=== PATIENT | male | born 1950 | race African-American/Black ===

== ENCOUNTER 2016-04-07 03:04 | Inpatient (IN) | payer OTHER ==
--- NOTE | 2016-04-06 11:07 | EKG Report ---
Test Performed on : 04/06/2016 10:18:14 AM Test Reason : PAT Blood Pressure : / mmHG Vent. Rate : 079 BPM Atrial Rate : 079 BPM P-R Int : 206 ms QRS Dur : 088 ms QT Int : 380 ms P-R-T Axes : 070 -50 058 degrees QTc Int : 435 ms Normal sinus rhythm. Left axis deviation Abnormal ECG When compared with ECG of 25-MAY-2012 09:24, ST less elevated in V2 Confirmed by Nadeem Diaz DO ([id number]) on 04/06/2016 6:53:28 PM
[2016-04-06 12:28] LABS: MANUAL DIFF NEEDED? NO; URINE MICRO REVIEW NEEDED? NO; URINE SOURCE CLEAN CATCH
[2016-04-06 12:29] LABS: BASO% 0.6 % (0.0-0.8); EOS% 1.6 % (0.0-10.0); HEMOGLOBIN 14.9 g/dL (14.0-18.0); IMM GRAN# 0.02 X1000 (0.0-0.04); IMM GRAN% 0.3 % (0.0-0.5); LYMPH# 2.54 X1000 (1.2-3.4); MCH 27.9 PG (27-31); MCHC 33.1 g/dL (33-37); MCV 84.1 FL (81-99); MONO# 0.67 X1000 (0.11-0.59); MONO% 10.8 % (1.7-9.3); MPV 10.8 FL (7.4-10.4); NEUT% 45.7 % (42.2-75.2); PLT 272 X1000 (130-400); RBC 5.35 XMIL (4.7-6.1)
[2016-04-06 12:31] LABS: BILIRUBIN URINE NEGATIVE (NEGATIVE); BLOOD URINE NEGATIVE (NEGATIVE); COLOR YELLOW; GLUCOSE URINE NEGATIVE (NEGATIVE); LEUKOCYTES URINE SMALL (NEGATIVE); NITRITE URINE NEGATIVE (NEGATIVE); PH URINE 5.5; PROTEIN URINE NEGATIVE (NEGATIVE); SP GRAVITY URINE 1.021; TURBIDITY URINE CLEAR (CLEAR); UROBILINOGEN URINE NORMAL (NORMAL)
[2016-04-06 12:32] LABS: UR EPITHELIAL CELLS <10 /HPF (<10); URINE BACTERIA NEGATIVE /HPF; URINE RBC <10 /HPF (<10); URINE WBC <10 /HPF (<10)
[2016-04-06 12:43] LABS: INR 1.19; PROTIME 12.6 Seconds (9.2-11.7); PTT 27.8 Seconds (22.0-36.0)
[2016-04-06 13:01] LABS: AGAP 15; BUN 18 mg/dL (8-22); CALCIUM 9.6 mg/dL (8.8-10.2); CHLORIDE 99 mmol/L (98-107); COSMO 280; POTASSIUM 3.9 mmol/L (3.5-5.1); SODIUM 138 mmol/L (136-145); TCO2 24 mmol/L (25-35)
[2016-04-07] MEDS ORDERED: COLACE ONE (06:23)
[2016-04-07] MEDS ORDERED: CELEBREX ONE (06:23)
[2016-04-07] MEDS ORDERED: LR 1,000 ML ONE ×2 (06:23→12:34)
[2016-04-07] MEDS ORDERED: LYRICA ONE (06:23)
[2016-04-07] MEDS ORDERED: REGLAN ONE (06:24)
[2016-04-07] MEDS ORDERED: PEPCID ONE (06:24)
[2016-04-07] MEDS ORDERED: TOPROL XL ONE (06:48)
--- NOTE | 2016-04-07 07:39 | HISTORY AND PHYSICAL ---
CHIEF COMPLAINT: Pain, left knee. HISTORY OF PRESENT ILLNESS: This is a 66-year-old black male with a history of increasing pain about his left knee for several years. No improvement is seen with conservative treatment. Examination and x-rays are compatible with osteoarthritis about his left knee. It was felt he would benefit from admission for surgery for left total knee arthroplasty. This has been discussed with him including expected results and possible complications, and he wishes to proceed. PRIMARY CARE PHYSICIAN: He does not have a regular physician. He goes to urgent care when needed. ALLERGIES: Denies any known drug allergies. REGULAR MEDICATIONS: Include naproxen, Nexium, Bactrim, Zocor, OxyContin, metoprolol, metformin, ibuprofen. Please see chart for dosages. SERIOUS ILLNESSES: He does have a history of sleep apnea. He does not use a CPAP. He has hypertension, high cholesterol, gastric reflux, diabetes. PREVIOUS SURGERIES: He has had cervical disk fusion, lumbar disk surgery, surgery to his hand, also nailing of his right hip in 2007. REVIEW OF SYSTEMS: HEENT: Denies any history of headaches, dizziness, or blacking out. Cardiorespiratory: No history of pneumonia, bronchitis, or asthma. He does have sleep apnea, but does not use a CPAP. He does have a history of hypertension and high cholesterol. He denies any known heart problems. Gastrointestinal: He does have a history of gastric reflux. Genitourinary: Negative. Musculoskeletal: See History of Present Illness. PHYSICAL EXAMINATION: GENERAL: This is a well-developed, well-nourished white male, who is alert and oriented. VITAL SIGNS: Temperature 98.4 degrees, pulse 88, respirations 18, blood pressure 146/100. Height is 6 feet 1 inch, weight 290 pounds. HEENT: Head is normocephalic. Pupils are equal, round, reactive to light. Extraocular movements are intact. Natural teeth are present. NECK: Good range of motion. CHEST: Clear to auscultation bilaterally. HEART: Regular rhythm. ABDOMEN: Soft and nontender. Bowel sounds are active. EXTREMITIES: Lower extremities, exam of his left knee with medial joint line tenderness, worse with range of motion. There is crepitus with range of motion. He does have good flexion and extension present. NEUROVASCULAR: Function is intact distally. IMPRESSION: Osteoarthritis, left knee. PLAN: Admit for surgery for left total knee arthroplasty. Expected results and possible complications have been discussed with him, and he seems to have understanding of this and wishes to proceed. All questions were answered. Dictated by Tree Lara RN for Tc Cardona MD
[2016-04-07] MEDS ORDERED: VERSED ONE (08:08)
[2016-04-07] MEDS ORDERED: NAROPIN 0.5% ONE (08:08)
[2016-04-07] MEDS ORDERED: TORADOL ONE (08:20)
[2016-04-07] MEDS ORDERED: DURAMORPH ONE (08:20)
[2016-04-07] MEDS ORDERED: SODIUM CHLORIDE 0.9% ONE (08:21)
[2016-04-07] MEDS ORDERED: NEOSPORIN G.U. IRRIGANT ONE (08:21)
[2016-04-07] MEDS ORDERED: VANCOMYCIN ONE (08:21)
[2016-04-07] MEDS ORDERED: MARCAINE 0.25% PF/EPI 1:200,000 ONE (08:21)
[2016-04-07] MEDS ORDERED: EXPAREL 1.3% ONE (08:22)
[2016-04-07] MEDS: CYKLOKAPRON 1,000 MG/NS 100 ML ONE ×5 (08:31→10:48)
[2016-04-07] MEDS: KEFZOL 2 GM/D5W 50 ML ONE ×2 (08:31→08:44)
[2016-04-07] MEDS ORDERED: NAPROSYN PO SCH (09:00)
[2016-04-07 10:05] LABS: URINE MICRO REVIEW NEEDED? NO; URINE SOURCE CATH
[2016-04-07 10:07] LABS: BILIRUBIN URINE NEGATIVE (NEGATIVE); BLOOD URINE NEGATIVE (NEGATIVE); COLOR YELLOW; GLUCOSE URINE NEGATIVE (NEGATIVE); LEUKOCYTES URINE NEGATIVE (NEGATIVE); NITRITE URINE NEGATIVE (NEGATIVE); PH URINE 5.5; PROTEIN URINE NEGATIVE (NEGATIVE); SP GRAVITY URINE 1.021; TURBIDITY URINE CLEAR (CLEAR); UROBILINOGEN URINE NORMAL (NORMAL)
[2016-04-07 10:08] LABS: UR EPITHELIAL CELLS <10 /HPF (<10); URINE BACTERIA NEGATIVE /HPF; URINE RBC <10 /HPF (<10); URINE WBC <10 /HPF (<10)
[2016-04-07] MEDS ORDERED: ZOFRAN ONE ×2 (11:15→12:34)
[2016-04-07] MEDS: DILAUDID ONE ×6 (11:16→12:00)
[2016-04-07] MEDS ORDERED: NS 1,000 ML ONE (11:23)
[2016-04-07] MEDS ORDERED: DIPRIVAN 1% ONE (11:56)
[2016-04-07] MEDS ORDERED: FENTANYL ONE (11:56)
[2016-04-07] MEDS ORDERED: DECADRON ONE (12:34)
[2016-04-07] MEDS ORDERED: OFIRMEV 1000 MG/ISOTONIC SOLN 100 ML ONE (12:34)
[2016-04-07] MEDS ORDERED: ROBINUL ONE (12:34)
[2016-04-07] MEDS ORDERED: CLAVE SECONDARY SET 11953 ONE (12:34)
[2016-04-07] MEDS ORDERED: XYLOCAINE-MPF 2% ONE (12:34)
[2016-04-07] MEDS ORDERED: FLEXERIL PO PRN (12:58)
[2016-04-07] MEDS ORDERED: MILK OF MAGNESIA PO PRN (12:59)
[2016-04-07] MEDS ORDERED: ZOFRAN PO PRN (12:59)
[2016-04-07] MEDS: MORPHINE IV PRN ×3 (13:29→21:22)
--- NOTE | 2016-04-07 13:49 | Diag Imaging Result Document ---
PROCEDURE NAME: KNEE 1-2 VIEWS-LEFT - 04/07/2016 PLAIN RADIOGRAPH OF THE LEFT KNEE 2 VIEWS: COMPARISON: None available. FINDINGS: There has been a recent left knee arthroplasty. The arthroplasty hardware is in the expected position. There is no evidence of periprosthetic fracture. Anterior skin jesús and a drainage catheter are in place. IMPRESSION: Satisfactory postoperative knee.
--- NOTE | 2016-04-07 15:37 | OPERATIVE NOTE ---
PROCEDURE DATE: 04/07/2016 PREOPERATIVE DIAGNOSIS: Degenerative osteoarthritis of the left knee. POSTOPERATIVE DIAGNOSIS: Degenerative osteoarthritis of the left knee. PROCEDURE: Left total knee arthroplasty with a DePuy Attune size 6 posterior stabilized femur, size 7 tibial tray, 14 mm rotating platform tibial insert, and a 38 mm medialized anatomic patella. SURGEON: Dr. Tc Cardona. DIGITAL SPECIALIST: DANDY Saenz. SECOND DIGITAL SPECIALIST: Tree Lara RN. ANESTHESIA: General. IV FLUIDS: 1500 mL lactated Ringer's. ESTIMATED BLOOD LOSS: 30 mL. TOURNIQUET TIME: 95 minutes at 350 mmHg. COMPLICATIONS: None. INDICATION: The patient is a 66-year-old male with a chronic history of worsening pain and discomfort of the left knee. X-rays revealed significant degenerative osteoarthritis. It appears his pain has progressed and affects his activities of daily living. Recommendation to proceed with a left total knee arthroplasty was offered. Risks and benefits of surgery explained including risks of anesthesia, , bleeding, infection, failure to relieve pain, postoperative stiffness, nerve injury, blood clots, and other imponderables. All questions were answered, and the patient and family wished to proceed with surgery. DETAILS OF OPERATION: The patient was taken to the operating room and placed supine on the operating table. Once adequate anesthesia was obtained, the patient's left lower extremity was subsequently prepped and draped in the sterile fashion. An Esmarch was used to exsanguinate the left lower extremity, and the tourniquet was inflated to 350 mmHg. A standard anterior incision was made with the skin knife. Medial and lateral skin envelopes developed. Standard medial parapatellar arthrotomy was then performed. Patella fat pad was excised. Approximately 1 cm anterior to the PCL insertion, the starting reamer was passed. Intramedullary guide with a distal femoral cutting block was pinned in position. Distal femoral cut was then performed. A sizing block was placed and measured size 6. Corresponding pins were placed. A size 6 cutting block was placed into position. Anterior, posterior, and chamfer cuts were then made. Attention then turned to the proximal tibia where further resection of the ACL and PCL was performed. Using the extramedullary guide, the proximal tibia cutting block was pinned in position. The proximal tibia was then resected in standard fashion. A curved osteotome was used to remove the posterior osteophytes off the distal femur. The medial and lateral meniscus was excised. A spacer block was placed and had good soft tissue balance in both flexion and extension. Attention turned to the proximal tibia and a size 7 tray appeared to be the correct size. This was pinned in position. This was followed by central reamer and a fin punch. Attention then turned to the distal femur where a box cutting guide was pinned in position. A box cut was performed. A size 6 trial femoral component was impacted in position and 2 good lug holes were drilled. The trial tibial insert was placed and had good soft tissue balancing. Patella everted and resected in standard fashion. A 38 appeared to be the correct size. Corresponding holes were drilled. A size 38 patella trial was then placed and had good patellofemoral tracking. The components were then removed. A small drill bit was used to drill a few holes in the medial sclerotic bone of the proximal tibia. The wound was copiously irrigated with antibiotic pulsatile lavage while vancomycin was mixed with cement on the back table. Sequential cementing was then performed, first with the tibial tray and excess cement was removed with a [place] followed by the femoral component. Excess cement was removed with a [place]. A trial tibial insert was placed and axial loading in full extension was maintained while the cement hardened. The patella cemented in standard fashion. Patella clamp was placed. While the cement was hardening, Exparel was placed in the deep soft tissue as well as subcutaneous tissue. After the cement hardened, peripheral cement was removed with a small osteotome. A 14 mm rotating platform tibial insert appeared to be the correct size. The trial insert was removed. Exparel was placed in the deep posterior capsule. The wound was copiously irrigated with antibiotic pulsatile lavage. The size 14 tibial insert was then placed and had good soft tissue balancing and good patellofemoral tracking. A 1/8 Hemovac drain was placed and was not sewn in. Copious irrigation was then performed once again with antibiotic pulsatile lavage. Number 1 Vicryl was used to repair the arthrotomy, followed by 2-0 Vicryl to repair the subcutaneous tissue and skin jesús. Adaptic, sterile 4 x 4s, Webril, and cryo unit and an SANDEE wrap applied to the left lower extremity. The patient tolerated the procedure well. There were no complications. He was transferred to the recovery room in stable condition. [facility]
[2016-04-07] MEDS: KEFZOL 2 GM/D5W 50 ML IV SCH (16:50)
[2016-04-07] MEDS: TYLENOL PO SCH ×2 (16:50→22:57)
[2016-04-07] MEDS: GLUCOPHAGE PO SCH (18:10)
[2016-04-07] MEDS: NS 1,000 ML IV SCH ×2 (18:11→21:24)
[2016-04-07] MEDS: TOPROL XL PO SCH (18:11)
[2016-04-07] MEDS: NEXIUM PO SCH (18:12)
[2016-04-07] MEDS: SEPTRA DS PO SCH ×2 (18:12→21:22)
[2016-04-07] MEDS ORDERED: ZOCOR PO SCH (21:00)
[2016-04-07] MEDS: PERIDEX MT SCH (21:22)
[2016-04-07] MEDS: COLACE PO SCH (21:23)
[2016-04-07] MEDS: OXYCONTIN PO SCH (22:57)
[2016-04-08] MEDS: KEFZOL 2 GM/D5W 50 ML IV SCH (01:24)
[2016-04-08] MEDS: NS 1,000 ML IV SCH (01:27)
[2016-04-08] MEDS: MORPHINE IV PRN ×2 (05:04→08:48)
[2016-04-08] MEDS: TYLENOL PO SCH (05:06)
[2016-04-08 06:00] LABS: HEMATOCRIT 40.4 % (42.0-52.0); HEMOGLOBIN 13.1 g/dL (14.0-18.0)
[2016-04-08] MEDS ORDERED: XARELTO PO SCH (06:00)
[2016-04-08 06:09] LABS: AGAP 12; BUN 12 mg/dL (8-22); CALCIUM 8.8 mg/dL (8.8-10.2); CHLORIDE 99 mmol/L (98-107); COSMO 272; POTASSIUM 4.2 mmol/L (3.5-5.1); SODIUM 135 mmol/L (136-145); TCO2 24 mmol/L (25-35)
[2016-04-08] MEDS: OXYCONTIN PO SCH (06:19)
--- NOTE | 2016-04-08 07:01 | PROGRESS NOTE ---
DATE: 04/08/2016 SUBJECTIVE: Patient is a pleasant, 66-year-old male who is 1 day status post left total knee arthroplasty. Patient is currently resting comfortably. He has no complaints this morning. PHYSICAL EXAMINATION: Patient's left lower extremity dressing is intact. His calf is soft. He has active dorsiflexion and plantarflexion. He is neurovascularly intact distally. LABORATORY DATA: Hemoglobin is 13.1, hematocrit is 40.4. IMPRESSION: Postoperative day #1 status post left total knee arthroplasty. PLAN: At this point, we will change his dressing, discontinue his drain, and discontinue his Wiley. Plan on discharging home after physical therapy. Patient will proceed with outpatient physical therapy. He will follow up in the office on 04/20/2016.
[2016-04-08 07:54] VITALS: BP 153/80
[2016-04-08] MEDS: GLUCOPHAGE PO SCH (08:49)
[2016-04-08] MEDS: NEXIUM PO SCH (08:49)
[2016-04-08] MEDS: TOPROL XL PO SCH (08:49)
[2016-04-08] MEDS: COLACE PO SCH (08:49)
[2016-04-08] MEDS: SEPTRA DS PO SCH (08:49)
[2016-04-08] MEDS ORDERED: DECADRON IV ONE (09:00)
[2016-04-08] MEDS ORDERED: CELEBREX PO SCH (09:00)
[2016-04-08] MEDS: PERIDEX MT SCH (09:12)
== END 2016-04-08 11:54 | disposition home or self-care (01) | DRG 470 ==
LOC: SURHOLD 03:04 → 4N 09:02
PROVIDERS: ADMIT Orthopaedic Surgery Adult Reconstructive Orthopaedic Surgery; ATTEND Orthopaedic Surgery Adult Reconstructive Orthopaedic Surgery
PROC: 0SRD0J9 Replacement of Left Knee Joint with Synthetic Substitute, Cemented, Open Approach (ICD-10-PCS; principal; 2016-04-07 08:44)
DX: M17.9 Osteoarthritis of knee, unspecified (principal); I10 Essential (primary) hypertension; E11.9 Type 2 diabetes mellitus without complications; E78.00 Pure hypercholesterolemia, unspecified; K21.9 Gastro-esophageal reflux disease without esophagitis; G47.33 Obstructive sleep apnea (adult) (pediatric); Z79.899 Other long term (current) drug therapy; Z79.84 Long term (current) use of oral hypoglycemic drugs; Z79.1 Long term (current) use of non-steroidal anti-inflammatories (NSAID); Z98.1 Arthrodesis status
CPT/HCPCS: 73560; 80048; 81001; 82948; 85014; 85018; 85025; 85610; 85730; 86850; 86900; 86901; 88305; 88311; 93005; 93010; 94761; 94799; C9290; J0131; J0690; J1100; J1170; J1885; J2250; J2270; J2274; J2405; J2795; J3010; J3370; J7030; J7120; S0020; 97001-GP; 97110-GP; 97116-GP